=== PATIENT | male | born 1950 | race Caucasian/White ===

== ENCOUNTER 2024-06-19 13:27 | Outpatient (CLI) | payer MEDICARE, SELFPAY ==
--- NOTE | ~2024-06-19 | MR_ITS ---
EXAMINATION: MR IAC wo/w con DATE: 06/19/2024 14:38 INDICATION: Benign neoplasm of cranial nerves. TECHNIQUE: Magnetic resonance imaging (MRI) of the brain and brainstem was performed without and with 19 mL MultiHance intravenous contrast. COMPARISON: None. FINDINGS: There are a few foci of nonspecific increased T2-weighted signal intensity in the cerebral white matter, which is within normal limits for the patient's age. There is no intracranial hemorrha ge, acute infarction, or abnormal intracranial mass lesion. The optic chiasm is normal. The ventricle s are normal in size. The internal auditory canals, inner ears, and tympanic cavities are normal. The mastoid air cells are normal. There are likely changes of ocular lens replacement surgeries. The par anasal sinuses are clear. IMPRESSION: 1. Normal brain. Reviewed, dictated and finalized at location A. IMPRESSION: 1. Normal brain.
== END 2024-06-19 13:28 | disposition home or self-care (01) ==
LOC: ANHIMG 13:29
PROVIDERS: PCP Family Medicine; Visit Provider Otolaryngology
DX: H90.42 Sensorineural hearing loss, unilateral, left ear, with unrestricted hearing on the contralateral side (principal); D33.3 Benign neoplasm of cranial nerves
CPT/HCPCS: 70553; A9577

== ENCOUNTER 2025-05-05 13:25 | Outpatient (CLI) | payer MEDICARE, SELFPAY ==
--- OUTSIDE RECORDS SUMMARY | 2025-05-05 13:29 | XMS_ITS | Clinical Summary ---
Author Organization [facility] Address [address] [place] [address] Phone Care Team Providers Care Soloist Dancer Name Role Phone Unavailable Primary Care Provider Unavailabl e Allergies Active Allergy Reactions Criticality Noted Date Comments Alprazolam Hallucination Low 04/25/2016 Penicillins Unknown 04/25/2016 Medications albuterol (PROVENTIL,VENTOL IN) 2.5 mg /3 mL (0.083 %) Solution for Nebulization Take 2.5 mg by inhalation every 6 hours as needed. Active aspirin (ECOTRIN EC) 81 mg Tablet, Delayed Release (E.C.) Take 1 Tablet by mouth daily. 2 Active levothyroxine 100 mcg tablet 2 Active metFORMIN (GLUCOPHAGE) 500 mg tablet 2 Active metoprolol succinate (TOPROL XL) 25 mg Extended Release 24 hour tablet Take 12.5 mg by mouth daily. 2 Active nicotine (NICODERM CQ) 14 mg/24 hr patch APPLY ONE PATCH ON SKIN DAILY 2 Active nitroglycerin (NITROSTAT) 0.4 mg Tablet, Sublingual Place 0.4 mg under tongue every 5 minutes as needed. 1 Active omeprazole (PriLOSEC) 40 mg Capsule, Delayed Release(E.C.) Take 40 mg by mouth 2 times daily. 2 Active potassium chloride (KLOR-CON) 20 mEq Extended Release tablet Take 20 mEq by mouth daily. 2 Active pregabalin (LYRICA) 225 mg Capsule 2 Active ranolazine ER 500 mg tablet,extended release,12 hr Take 500 mg by mouth 2 times daily. 2 Active rosuvastatin (CRESTOR) 20 mg tablet 2 Active levoFLOXacin (LEVAQUIN) 500 mg tablet TAKE 1 TABLET BY MOUTH ONCE DAILY FOR 5 DAYS 3 Active calcium carbonate 500 mg-vitamin D3 5 mcg (200 unit) tablet Take 600 mg by mouth daily. 2 Active magnesium oxide 500 mg capsule Take 500 mg by mouth daily. Active ferrous sulfate 325 mg (65 mg iron) tablet Take 325 mg by mouth 2 times daily. 3 Active fluticasone propionate (CUTIVATE) 0.05 % Cream Apply 1 Each to affected area 1 time daily as needed. 3 Active furosemide (LASIX) 20 mg tablet 3 Active hydrocortisone (CORTAID) 1 % Cream Apply to affected area. 3 Active hydrOXYzine HCL (ATARAX) 50 mg tablet Take 50 mg by mouth 4 times daily as needed. 3 Active PARoxetine HCl (PAXIL) 20 mg tablet Take 20 mg by mouth. 3 Active pioglitazone (ACTOS) 15 mg tablet Take 15 mg by mouth daily. 3 Active roflumilast (DALIRESP) 250 mcg Tablet Take 1 Tablet (250 mcg) by mouth daily. 30 Tablet 3 Active roflumilast (DALIRESP) 500 mcg Tablet Take 1 Tablet (500 mcg) by mouth daily. 30 Tablet 6 3 Active predniSONE (DELTASONE) 5 mg tablet Take 1 Tablet (5 mg) by mouth daily. 90 Tablet 2 4 Active predniSONE (DELTASONE) 10 mg tablet Take 4 tablets by mouth daily with food in am x 3 days, then 3 tabs x 3 days, then 2 tabs x 3 days, then 1 tab x 3 days 30 Tablet 4 Active fluticasone-umecl idinium-vilantero l (Trelegy Ellipta) 100-62.5-25 mcg Disk with Device INHALE 1 PUFF EVERY DAY RINSE MOUTH WELL AFTER USE 180 Each 3 4 Active predniSONE (DELTASONE) 5 mg tablet Take 1 Tablet (5 mg) by mouth daily with breakfast. 90 Tablet 3 4 Active montelukast (Singulair) 10 mg tablet Take 1 Tablet (10 mg) by mouth daily. 90 Tablet 3 4 Active Active Problems Problem Noted Date Diagnosed Date Wheezing 04/29/2023 Chronic obstructive pulmonary disease 04/29/2023 Encounters Date Type Department Care Team Description 05/04/2025 External Device Data [facility] Provider, Abstract 04/06/2025 External Device Data [facility] Provider, Abstract 03/11/2025 External Device Data [facility] Provider, Abstract 02/04/2025 1:00 PM CDT Office Visit [facility] [address] [place] [id number] Juvencio Resendez MD Chronic obstructive pulmonary disease, unspecified COPD type (CMS/HCC) (Primary Dx) from Last 3 Months Social History Tobacco Use Types Packs/Day Years Used Date Smoking Tobacco: Some Days Cigarettes Last attempted to quit: 10/2021 Smokeless Tobacco: Never Tobacco Cessation:Ready to Q uit: Not Asked; Counseling Given: Not Answered Comments:2 cigs a day or none Sex and Gender Information Value Date Recorded Sex Assigned at Not on file Legal Sex Male 11:01 AM CDT Gender Identity Not on file Sexual Orientation Not on file Last Filed Vital Signs Vital Sign Reading Time Taken Comments Blood Pressure 106/72 02/04/2025 1:06 PM CDT Pulse 58 02/04/2025 1:06 PM CDT Temperature - - Respiratory Rate - - Oxygen Saturation 93% 02/04/2025 1:06 PM CDT 3L Inhaled Oxygen Concentration - - Weight 93.5 kg (206 lb 3.2 oz) 02/04/2025 1:06 P M CDT Height 170.2 cm (5' 7) 02/04/2025 1:06 PM CDT Body Mass Index 32.3 02/04/2025 1:06 PM CDT Plan of Treatment Upcoming Encounters Date Type Department Care Team (Late st Contact Info) Description 07/26/2025 1:15 PM CDT Office Visit [facility] Pulmon[address] [place] [phone] Juvencio Resendez MD [address] [place] [address] Health Maintenance Due Date Last Done Comments DIABETES ANNUAL FOOT EXAM 1968 DIABETES MICROALBUMIN ANNUAL SCREEN 1968 LDL CHOLESTEROL ANNUAL 1968 DTAP/TDAP/TD VACCINES (1 - Tdap) 1969 FIT-DNA Q 3 years 1995 FIT/FOBT Q 1 year 1995 Flex Sig/CT Colonography Q 5 years 1995 RSV VACCINE (60+ or ) (1 - Risk 60-74 years 1-dose series) 2010 Abdominal Aortic Aneurysm (A AA) Screening 2015 DIABETES ANNUAL RETINAL EXAM 11/25/2020 11/25/2019 PNEUMOCOCCAL VACCINE 50+ YEA RS (3 of 3 - PCV20 or PCV21) 03/26/2021 03/26/2016, 10/21/2013 DIABETES HBA1C Q 6 MONTHS 11/08/20242023, 02/10/2024, 11/06/2023, Additional history exists INFLUENZA VACCINE (#1) 2025 08/05/2019 COLORECTAL SCREENING 05/14/2033 05/14/2023, 05/14/20 23 Colorectal Cancer Screening 05/14/2033 ZOSTER VACCINE Completed 01/18/2020, 11/20/2019 Insurance MEDICARE PART A AND B [employer] SUPP
--- OUTSIDE RECORDS SUMMARY | 2025-05-05 13:29 | XMS_ITS | Encounter Summary ---
Author Organization [facility] Address [address] [place] [address] Care Team Providers Care Turf Manager Name Role Phone Unavailable Primary Care Provider Unavailabl e Encounter Details Date Type Department Care Team (Late st Contact Info) Description 05/04/2025 External Device Data [facility] Provider, Abstract NO ADDRESS ON FILE Social History Tobacco Use Types Packs/Day Years Used Date Smoking Tobacco: Some Days Cigarettes Last attempted to quit: 10/2021 Smokeless Tobacco: Never Comments:2 cigs a day or non e Sex and Gender Information Value Date Recorded Sex Assigned at Not on file Legal Sex Male 11:01 AM CDT Gender Identity Not on file Sexual Orientation Not on file documented as of this encounter Plan of Treatment Upcoming Encounters Date Type Department Care Team (Late st Contact Info) Description 07/26/2025 1:15 PM CDT Office Visit [facility] Pulmonology [address] [place] [address] Juvencio Resendez MD [address] [facility] [address] [facility] [facility] [address] [place] [address] documented as of this encounter Visit Diagnoses Not on filedocumented in this encounter
== END 2025-05-05 13:26 | disposition home or self-care (01) ==
LOC: ANHAUDASC 13:26
PROVIDERS: PCP Family Medicine; Visit Provider Otolaryngology
DX: H93.12 Tinnitus, left ear (principal); H90.3 Sensorineural hearing loss, bilateral
CPT/HCPCS: 92557; 92567